=== PATIENT | male | born 1965 | race Caucasian/White ===

== ENCOUNTER 2023-10-12 13:16 | Emergency (ER) | payer OTHER ==
[~2023-10-12] VITALS: Ht 170.2 cm; Wt 77.1 kg
[2023-10-12 14:48] LABS: BASOPHILS # (AUTO) 0.06 K/uL (0.00-0.20); BASOPHILS % (AUTO) 0.6 % (0.0-5.0); EOSINOPHILS # (AUTO) 0.53 K/uL (0.00-0.70); EOSINOPHILS % (AUTO) 5.5 % (0.0-8.0); HEMATOCRIT 49.7 % (42-54); IMMATURE GRANULOCYTE ABSOLUTE 0.05 K/uL (0-1); LYMPHOCYTES # (AUTO) 2.7 K/uL (1.0-4.8); LYMPHOCYTES % (AUTO) 27.8 % (21.0-51.0); MEAN CORPUSCULAR HGB CONC 33.4 g/dL (32.0-36.0); MEAN CORPUSCULAR VOLUME 89.7 fL (79-99); MONOCYTES # (AUTO) 0.7 K/uL (0.1-1.0); MONOCYTES % (AUTO) 6.9 % (3.0-13.0); NEUTROPHILS # (AUTO) 5.7 K/uL (1.8-7.7); NEUTROPHILS % (AUTO) 58.7 % (40.0-77.0); PLATELET COUNT (AUTO) 300 K/uL (130-400); RED BLOOD CELL COUNT(AUTO) 5.54 MIL/uL (4.50-6.20); RED CELL DISTRIBUTION WIDTH 13.3 % (11.0-15.5); WHITE BLOOD COUNT (AUTO) 9.7 K/uL (4.8-10.8)
[2023-10-12 14:55] LABS: CREATININE 0.7 mg/dL (0.5-1.3); POTASSIUM 3.2 mmol/L (3.5-5.1)
[2023-10-12 14:57] LABS: INR 0.98 (0.85-1.15); PROTHROMBIN TIME 10.6 SEC (9.6-11.6)
[2023-10-12 14:58] LABS: PARTIAL THROMBOPLASTIN TIME 27.8 SEC (26.3-35.5)
[2023-10-12 17:07] VITALS: BP 155/76; PULSE 68; RESP 20; TEMP 98.7; O2SAT 97
== END 2023-10-12 17:10 | disposition home or self-care (01) ==
LOC: EDH 13:16
DX: S70.11XA Contusion of right thigh, initial encounter (principal); I10 Essential (primary) hypertension; X58.XXXA Exposure to other specified factors, initial encounter; Y93.89 Activity, other specified; Y92.89 Other specified places as the place of occurrence of the external cause; Y99.8 Other external cause status
CPT/HCPCS: 36415; 76882; 80048; 85025; 85610; 85730

== ENCOUNTER 2025-02-05 11:32 | Emergency (ER) | payer OTHER ==
[~2025-02-05] VITALS: Ht 170.2 cm; Wt 82.6 kg
[2025-02-05 11:34] VITALS: TEMP 97.3
--- NOTE | 2025-02-05 11:47 | NUR ---
PT JUST NOW PLACED IN MY ED [facility]
[2025-02-05 12:05] LABS: RAPID GROUP A STREP negative (NEGATIVE)
[2025-02-05 12:15] LABS: INFLUENZA TYPE A Negative For Type A (NEGATIVE); INFLUENZA TYPE B Negative For Type B (NEGATIVE)
[2025-02-05 12:17] VITALS: PULSE 70; RESP 19
[2025-02-05 12:19] LABS: SARS-CoV-2, RNA, NAAT NEGATIVE SARS CoV-2 (NEGATIVE)
[2025-02-05 12:21] LABS: CREATININE 0.8 mg/dL (0.5-1.3); GLOMERULAR FILTR. RATE CALC 101.0 mL/min (>90); GLUCOSE,RANDOM 96.0 mg/dL (70-105); IMMATURE GRANULOCYTE ABSOLUTE 0.03 K/uL (0-1); NUCLEATED RED BLOOD CELLS 0.0 % (0.0-0.19); PLATELET COUNT (AUTO) 244 K/uL (130-400); RED BLOOD CELL COUNT(AUTO) 6.33 MIL/uL (4.50-6.20); RED CELL DISTRIBUTION WIDTH 14.0 % (11.0-15.5); SODIUM SERUM 140.0 mmol/L (136-145); UREA NITROGEN, BLOOD 20.0 mg/dL (7-18); WHITE BLOOD COUNT (AUTO) 9.8 K/uL (4.8-10.8)
[2025-02-05] MEDS: 0.9%NACL 1000ML 1,000 ML IV ONE (12:34)
[2025-02-05 12:36] LABS: ABG BASE EXCESS 2.1 mmol/L (-2.0-3.0); ABG HCO3 28.4 mmol/L (21.0-28.0); ABG OXYGEN SATURATION 92.1 % (94.0-98.0); ABG PCO2 49 mmHg (35-48); ABG PH 7.382 (7.350-7.450); CARBON MONOXIDE 0.7 % (0.5-1.5); DEVICE COMMENT RR; PO2, ARTERIAL BG 61.6 mmHg (83.0-108.0); TEMPERATURE, CELSIUS BG 37.0 CELSIUS (35.5-37.0); VENT MODE, BG RA (ROOM AIR)
[2025-02-05 12:48] VITALS: PULSE 65; RESP 19; O2SAT 96
[2025-02-05] MEDS ORDERED: AZIT250T PO (13:04)
[2025-02-05] MEDS ORDERED: PRED10TA3 PO (13:04)
--- NOTE | 2025-02-05 13:06 | HMCIMG ---
EXAM: CR Chest, 1 View. CLINICAL HISTORY: Shortness of breath COMPARISON: None provided. FINDINGS: LUNGS: The lungs show no infiltrate or other acute finding. PLEURAL SPACES: No pleural effusion or pneumothorax. MEDIASTINUM: The cardiomediastinal silhouette is within normal limits. BONES: No aggressive appearing osseous lesion seen. IMPRESSION: No acute cardiopulmonary pathology is evident. /[place]
--- NOTE | 2025-02-05 13:07 | ERN ---
General Chief Complaint: Flu Symptoms Stated Complaint: FLU SYMPTOMS Time Seen by MD: 11:43 Source: patient History of Present Illness Initial Comments Mr Dillard, 59M presented to ER with chief complaint of severe shortness of breath, congestion, cough, teary eyes, running nose since 3 weeks. He reports using nebulizer and that improves the symptoms briefly but that have been c onstantly aggravating and that prompted him to come to the ER. Reports mild fever, headache, nausea, body pains. Reports history of snoring. Timing/Duration: getting worse Severity: moderate Associated Symptoms: cough, fever/chills, headaches, loss of appetite, malaise, nausea/vomiting, shortness of breath Allergies: Coded Allergies: No Known Drug Allergies (Unverified Allergy, Unknown, 02/05/25) Home Meds Active Scripts Prednisone (Prednisone) 10 Mg Tablet, 1 TAB PO BID for 5 Days, #10 TAB 0 Refills Prov:ROMAN EVANGELISTA MD 02/05/25 Azithromycin (Zithromax) 250 Mg Tablet, 1 TAB PO AD for 5 Days, #6 TAB 0 Refills 2 the first day followed by 1 for days 2-5 Prov:ROMAN EVANGELISTA MD 02/05/25 Past Medical History Past Medical History: Hypertension Past Surgical History: None Constitutional: (+) fever, (+) malaise EENTM: (+) tearing, (+) nose congestion, (+) Throat swelling Respiratory: (+) cough, (+) short of breath Gastrointestinal/Abdominal: (+) nausea Musculoskeletal: (+) muscle pain Neuro: (+) headache, (+) dizziness Review of Systems: was completed, & the rest were negative. Physical Exam General Appearance: (+) mild distress Orientation: (+) alert, (+) oriented x 3 Head/Face Trauma: No Eye: bilateral eye other Eyes Comment Teary eyes, congestion Ear, Nose, Throat: (+) hearing grossly normal, (+) normal ENT inspection, (+) moist mucous membraine, (+) pharyngeal erythema, (+) nasal congestion Neck: (+) normal inspection Respiratory: (+) chest non-tender, (+) well ventilated, (+) wheezing Heart: (+) regular, (+) no gallop Vascular: (+) no edema Gastrointestinal: (+) soft, (+) non-tender Genital: (+) deferred Rectal: (+) deferred Back: (+) normal inspection Extremities: (+) normal range of motion, (+) non-tender Neurologic/Psychiatric: (+) normal speech, (+) no motor defecits, (+) no sensory deficits Skin: (+) warm/dry Lymphatic: (+) no adenopathy Results Laboratory and Microbiology Lab and Micro Result Laboratory Tests Test 02/05/25 11:40 02/05/25 12:08 02/05/25 12:35 Influenza Type A Antigen Negative For Type A Influenza Type B Antigen Negative For Type B SARS-CoV-2, RNA, NAAT NEGATIVE SARS CoV-2 Group A Streptococcus Rapid negative (NEGATIVE) White Blood Count 9.8 K/uL (4.8-10.8) Red Blood Count 6.33 MIL/uL (4.50-6.20) H Hemoglobin 19.4 g/dL (14.0-18.0) H Hematocrit 60.5 % (42-54) *H Mean Corpuscular Volume 95.6 fL (79-99) Mean Corpuscular Hemoglobin 30.6 pg (27.0-33.0) Mean Corpuscular Hemoglobin Concent 32.1 g/dL (32.0-36.0) Red Cell Distribution Width 14.0 % (11.0-15.5) Platelet Count 244 K/uL (130-400) Mean Platelet Volume 10.2 fL (7.5-10.5) Immature Granulocyte % (Auto) 0.3 % (0-1) Neutrophils (%) (Auto) 62.0 % (40.0-77.0) Lymphocytes (%) (Auto) 21.3 % (21.0-51.0) Monocytes (%) (Auto) 8.2 % (3.0-13.0) Eosinophils (%) (Auto) 7.4 % (0.0-8.0) Basophils (%) (Auto) 0.8 % (0.0-5.0) Neutrophils # (Auto) 6.1 K/uL (1.8-7.7) Lymphocytes # (Auto) 2.1 K/uL (1.0-4.8) Monocytes # (Auto) 0.8 K/uL (0.1-1.0) Eosinophils # (Auto) 0.72 K/uL (0.00-0.70) H Basophils # (Auto) 0.08 K/uL (0.00-0.20) Absolute Immature Granulocyte (auto 0.03 K/uL (0-1) Nucleated Red Blood Cells 0.0 % (0.0-0.19) Sodium Level 140 mmol/L (136-145) Potassium Level 4.5 mmol/L (3.5-5.1) Chloride Level 104 mmol/L (101-111) Carbon Dioxide Level 35 mmol/L (21-32) H Blood Urea Nitrogen 20 mg/dL (7-18) H Creatinine 0.8 mg/dL (0.5-1.3) Glomerular Filtration Rate Calc 101 mL/min (>90) Random Glucose 96 mg/dL (70-105) Lactic Acid Level 1.3 mmol/L (0.8-2.5) Total Calcium 8.7 mg/dL (8.5-10.1) Procalcitonin < 0.05 ng/mL (0.05-0.5) L Blood Gas Specimen Type Arterial Arterial Blood pH 7.382 (7.350-7.450) Arterial Blood Partial Pressure CO2 49 mmHg (35-48) H Arterial Blood Partial Pressure O2 61.6 mmHg (83.0-108.0) L Arterial Blood HCO3 28.4 mmol/L (21.0-28.0) H Arterial Blood Oxygen Saturation 92.1 % (94.0-98.0) L Arterial Blood Base Excess 2.1 mmol/L (-2.0-3.0) Hemoglobin (Blood Gas) 20.4 g/dL (13.5-17.5) *H Sodium (Blood Gas) 138 MMOL/L (136-145) Bedside Potassium (Blood Gas) 4.2 MMOL/L (3.4-4.5) Bedside Chloride (Blood Gas) 103 MMOL/L (98-107) Bedside Glucose (Blood Gas) 103 MG/DL (65-95) H Bedside Ionized Calcium (Blood Gas) 1.17 MMOL/L (1.15-1.33) Bedside Lactic Acid (Blood Gas) 0.92 MMOL/L (0.36-0.75) H Blood Gas Temperature 37.0 CELSIUS (35.5-37.0) Blood Gas Vent Mode RA (ROOM AIR) FiO2 21.0 % Blood Gas Specimen Comment RR MDM Differential diagnosis: Erythrocytosis, acute upper respiratory tract infection The patient presented to the ER with chief complaint of fever, cough, congestion, weakness, headaches since 3 weeks Rationale: This consult and ordered secondary to share decision-making include CBC, BMP, chest x-ray, influenza a, influenza B, strep, COVID rapid testing In the ER the patient received [id number] mg once, DuoNeb once, and NS 1000 mL bolus once Medications-per medication reconciliation Need for hospitalization: Patient does NOT meet criteria for hospitalization. PATIENT'S CONDITION IS IMPROVED AND CAN BE DISCHARGED HOME Need for emergency major/minor surgery: No There are no social concerns with this patient Prescription drug management Description we will include symptomatic care I independently interpreted the test that were performed, results were reviewed by me and considered finding from Radiology ordered Medical management and examination interpretation discussions were had by me with other qualified health wound care technician as indicated for the patient's care ED Course Orders Procedure Category Date Status Time Influenza Type A & B, LAB 02/05/25 Complete Rapid 11:40 Covid Rna Naat LAB 02/05/25 Complete 11:40 Rapid (Group A Strep) LAB 02/05/25 Complete 11:40 Cbc With Differential LAB 02/05/25 Complete 11:58 Basic Metabolic Panel LAB 02/05/25 Complete 11:58 Procalcitonin LAB 02/05/25 Complete 11:58 Lactic Acid LAB 02/05/25 Complete 11:58 Chest 1vw RAD 02/05/25 Resulted 11:58 Methylprednisolone PHA 02/05/25 Complete Succ 125mg (Solu-Medr 12:00 Ipratropium/Albuterol PHA 02/05/25 Complete Neb (Duoneb) 12:00 Ipratropium/Albuterol PHA 02/05/25 Complete Neb (Duoneb) 12:01 0.9%Nacl 1000ml (Ns PHA 02/05/25 Complete 1000ml) 12:30 Arterial Blood Gas + RT 02/05/25 Transmitted 12:18 Arterial Blood Gas LAB 02/05/25 Complete Arterial + 12:35 Current Medications Medications (Trade) Dose Ordered Sig/Aureliano Route PRN Reason Start Time Stop Time Status Last Admin Dose Admin Albuterol (DUOneb) 1 UDVIAL ONCE ONCE IH 02/05/25 12:00 02/05/25 12:01 DC 02/05/25 12:09 Albuterol (DUOneb) 1 udvial STK-MED ONCE IH 02/05/25 12:01 02/05/25 12:01 DC Methylprednisolone Sodium Succinate (Solu-medROL 125MG) 120 mg ONCE ONCE IVP 02/05/25 12:00 02/05/25 12:01 DC 02/05/25 12:33 Sodium Chloride 1,000 ml @ 0 mls/hr ONCE ONCE IV 02/05/25 12:30 02/05/25 12:31 DC 02/05/25 12:34 Vital Signs Date Time Temp Pulse Resp B/P (MAP) Pulse Ox O2 Delivery O2 Flow Rate FiO2 02/05/25 12:48 65 19 Nasal Cannula 2.0 28 02/05/25 12:17 70 19 02/05/25 11:34 97.3 68 18 176/108 96 Room Air 0 DX & DISP Disposition: Discharge Departure Impression: Primary Impression: Acute upper respiratory infection Critical Time: 45 minutes Condition: Improved Scripts Prednisone (Prednisone) 10 Mg Tablet 1 TAB PO BID for 5 Days, #10 TAB 0 Refills Prov: ROMAN EVANGELISTA MD 02/05/25 Azithromycin (Zithromax) 250 Mg Tablet 1 TAB PO AD for 5 Days, #6 TAB 0 Refills 2 the first day followed by 1 for days 2-5 Prov: ROMAN EVANGELISTA MD 02/05/25 Additional Instructions: You have been diagnosed with Acute upper respiratory tract infection Take azithromycin 250 mg2 tablets on the 1st day once, 250 mg 1 tablet daily for the next 4 days. Take prednisone 10 mg twice a day for 10 days Take DayQuil/NyQuil, Tylenol, saline nasal irrigation for symptomatic care of fever, congestion. You have elevated red blood cells that can be mostly due to chronic sleep apnea. Consult primary care physician in 2-3 days for further workup and management Visit ER if high fever persisting for more than 2-3 days, severe shortness of breath, syncopal episodes, altered mental status. Referrals: SELF,REFERRAL (PCP) ROMAN EVANGELISTA MD Feb 05, 2025 13:07 ROSEANN RODRIGUEZ MD Feb 05, 2025 13:08
[2025-02-05 14:07] VITALS: PULSE 67; RESP 18; O2SAT 96
[2025-02-05 14:14] VITALS: BP 190/129
--- NOTE | 2025-02-05 14:14 | NUR ---
PT JUST GIVEN HYDRALAZINBE FOR HIS ELEVATED D/C BP
== END 2025-02-05 14:20 | disposition home or self-care (01) ==
LOC: EDH 11:32
DX: J06.9 Acute upper respiratory infection, unspecified (principal); I10 Essential (primary) hypertension; Z79.52 Long term (current) use of systemic steroids; Z20.822 Contact with and (suspected) exposure to COVID-19
CPT/HCPCS: 99284; 96374; 71045; 87635; 96361; 96375; 82947; 80048; 82803; 85025; 87880; 87804 ×2; 83605 ×2; 36415; 36600; 94640; 84145; 84132; 84295; 85018; 82435; J2919; J7030; J0696